=== PATIENT | male | born 2000 | race Caucasian/White ===

== ENCOUNTER 2020-11-08 13:44 | Emergency (ER) | payer OTHER, SELFPAY ==
--- NOTE | 2020-11-08 13:49 | ED.URI ---
HPI - URI/Sore Throat General Chief Complaint: Upper Respiratory Infection Stated Complaint: SORE THROAT/FEVER/BODY ACHES/NAUSEA Time Seen by Provider: 11/08/20 13:49 Source: patient and RN notes reviewed History of Present Illness HPI Narrative: Patient is a 20-year-old male who presents the urgent care with complaints of sore throat fever, body aches and nausea. Patient states that it started at 2 AM this morning and he took ibuprofen for his at 102.0 fever. Patient states that he is been having a slight dizziness throughout the day and has increased his water intake as well as Gatorade. Patient denies any abdominal pain, headache, vomiting. Denies of any known exposure to Covid or strep. No other acute complaints. No acute distress noted. Patient aware of the plan of care. Some parts of this dictation were generated by voice recognition software and may contain typographical and/or grammatical inaccuracies. Related Data Allergies Allergy/AdvReac Type Severity Reaction Status Date / Time No Known Allergies Allergy Unknown Verified 11/08/20 14:00 Review of Systems Review of Systems: Narrative: CONSTITUTIONAL: Reports a fever EYES: Denies visual changes, redness, or discharge. ENT: Denies rhinorrhea, congestion, otalgia. Reports of sore throat CARDIOVASCULAR: Denies chest pain, palpitations, or edema. RESPIRATORY: Denies cough or dyspnea. GASTROINTESTINAL: Reports of nausea without vomiting, diarrhea or abdominal pain GENITOURINARY: Denies dysuria or hematuria. SKIN: Denies rash or itching. MUSCULOSKELETAL: Denies back pain, joint pain. Reports of body aches NEUROLOGIC: Denies headache, numbness, or weakness. All other systems reviewed are negative, except as documented in HPI. PMFSH Family History Family History Other Family history of attention deficit hyperactivity disorder (ADHD) Social History Social History Smoking status: Never smoker Alcohol intake: never Comments At the time of my signature, I reviewed and agree with the nursing past medical, surgical, social, and family history. There is no relevant family history pertinent to the patient complaint. Exam Narrative: Exam Narrative: GENERAL: This is a well-nourished, well-developed patient, in no apparent distress. HEAD: normocephalic, atraumatic. EYES: PERRL. Sclera clear/white. Vision is grossly intact. EARS: External ears normal, auditory canals clear and without drainage, TMs normal without perforation. Hearing grossly intact. NOSE: External nose normal with no obvious nasal discharge, nares without redness, no rhinorrhea. THROAT: Mucous membranes moist, moderate erythema noted to posterior oropharynx with mild bilateral tonsillar edema/erythema with bilateral exudate NECK: Neck supple, non-tender without lymphadenopathy, masses or thyromegaly. CARDIOVASCULAR: Regular rate and rhythm without murmurs, gallops, or rubs. RESPIRATORY: Clear to auscultation. Breath sounds equal bilaterally. No wheezes, rales, or rhonchi. SKIN: warm, intact with no suspicious lesions or rash, good texture and turgor. NEURO: awake, alert, and oriented to person, place and time. There were no obvious focal neurologic abnormalities. EXTREMITIES: No clubbing, cyanosis, or edema. Course Vital Signs Vital signs: Vital Signs Temperature 100.9 F H 11/08/20 13:58 Pulse Rate 105 H 11/08/20 13:58 Respiratory Rate 20 11/08/20 13:58 Blood Pressure 151/72 H 11/08/20 13:58 Pulse Oximetry 100 11/08/20 13:58 Temperature 100.9 F H 11/08/20 13:58 Pulse Rate 105 H 11/08/20 13:58 Respiratory Rate 20 11/08/20 13:58 Blood Pressure 151/72 H 11/08/20 13:58 Pulse Oximetry 100 11/08/20 13:58 Reviewed?patient is informed that they may have pre-hypertension or hypertension based on a blood pressure reading in the department. I recommend the patient call th
[2020-11-08 13:58] VITALS: BP 151/72; PULSE 105; RESP 20; TEMP 38.3; O2SAT 100
[2020-11-09 21:52] LABS: SARS-CoV-2 RNA PCR Negative
== END 2020-11-08 14:18 | disposition home or self-care (01) ==
PROVIDERS: Emergency Provider Nurse Practitioner Family; PCP Student in an Organized Health Care Education/Training Program
DX: J02.9 Acute pharyngitis, unspecified (principal); Z20.822 Contact with and (suspected) exposure to COVID-19; E10.9 Type 1 diabetes mellitus without complications
CPT/HCPCS: 87081; 87880; 99213; C9803; G0463; U0003; U0005

== ENCOUNTER 2022-08-02 17:39 | Emergency (ER) | payer OTHER, SELFPAY ==
--- NOTE | ~2022-08-02 | XR_ITS ---
Left Hand Technique: PA, oblique, and lateral views were obtained. Clinical History: Injury Findings: No acute fracture or dislocation is seen. Osseous alignment is anatomic. Joint spaces are p reserved. Soft tissues are unremarkable. Impression: Unremarkable left hand. 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
[2022-08-02 18:14] VITALS: BP 158/77; PULSE 73; RESP 16; TEMP 36.3; O2SAT 100
[2022-08-02 22:04] VITALS: BP 143/73; PULSE 71; RESP 16; O2SAT 100
--- NOTE | 2022-08-02 22:24 | ED.WOUNDLAC ---
HPI - Wound/Laceration General Chief Complaint: Wound/Laceration Stated Complaint: left hand laceration Time Seen by Provider: 08/02/22 22:07 Source: patient and RN notes reviewed Mode of arrival: ambulatory Limitations: no limitations History of Present Illness HPI narrative: This is a 22 year old male right hand dominant who presents for evaluation of left hand laceration. He was at work when he accidentally hit his hand on metal shelf causing small laceration to top of left hand. He has mild pain. REports tetanus is up to date. Related Data Allergies Allergy/AdvReac Type Severity Reaction Status Date / Time No Known Allergies Allergy Unknown Verified 08/02/22 17:40 Review of Systems Review of Systems: All systems reviewed & are unremarkable except as noted in HPI and below PMFSH Past Medical History Medical History Celiac disease Type 1 diabetes mellitus with hyperglycemia Surgical History Surgical History No pertinent past surgical history Family History Family History Other Family history of attention deficit hyperactivity disorder (ADHD) Social History Social History Smoking status: Never smoker Alcohol intake: never Substance use: never Exam Const: General: no acute distress and alert Nutritional Appearance: well nourished Orientation/consciousness: patient oriented x3 HENMT: Head: normal to inspection Eyes: EOM: EOMs intact bilaterally Resp: Effort & Inspection: normal respiratory effort Skin: Other: left hand with small 1 cm laceration dorsum 4th knuckle Neuro: General: patient oriented x3, moves all extremities and CN's II-XI intact bilaterally Extrem: Other: FROM with Psych: Mental Status: mental status grossly normal Affect: normal affect Attitude: cooperative Course Reevaluation(s) Reevaluation #1: I discussed with patient preliminary xray is negative and radiology will review for discrepancy in morning. Date: 08/03/22 Time: 00:08 Vital Signs Vital signs: Vital Signs Temperature 97.4 F L 08/02/22 18:14 Pulse Rate 73 08/02/22 18:14 Respiratory Rate 16 08/02/22 18:14 Blood Pressure 158/77 H 08/02/22 18:14 Pulse Oximetry 100 08/02/22 18:14 Oxygen Delivery Room Air 08/02/22 18:14 Temperature 97.4 F L 08/02/22 18:14 Pulse Rate 96 08/03/22 00:15 Respiratory Rate 16 08/03/22 00:15 Blood Pressure 152/98 H 08/03/22 00:15 Pulse Oximetry 98 08/03/22 00:15 Oxygen Delivery Room Air 08/02/22 18:14 Procedures Laceration Laceration 1: Date: 08/02/22 Time: 23:45 Site: hand Side (If applicable): left Size (cm): 1 Description: linear and clean Depth: simple, single layer Local Anesthetic: lidocaine 1% Amount of anesthesia used (mL): 2 Pre-repair: wound explored ====== Skin Level ====== Skin layer closed with: prolene Size (cm): 4-0 Number of sutures: 2 Technique: simple, interrupted ====== Subcutaneous Layer ====== ====== Muscle Layer ====== ====== Tendon Layer ====== MDM - Wound/Laceration Imaging Data Attestation: I personally reviewed and interpreted this imaging study as follows: My impression: left hand xray- no fracture Discharge Plan Discharge Clinical Impression: Laceration of hand, left Patient Disposition: Home, Self-Care Condition: Stable Instructions: Antibiotic Form, Care For Your Stitches (ED), Laceration (ED) Additional Instructions: Keep your wound clean and dry. Have stitches removed in 10 days. Prescriptions: No Action (DME) Omnipod 5 G6 Intro Kit (Gen 5) Cartridge See Rx Instructions .Route Qty: 1 0RF Rx Instructions:
[2022-08-02] MEDS: LIDOCAINE HCL 1% LOCAL INJ 20 ML VIAL 5 ML INFILTRATE (23:25)
[2022-08-03 00:15] VITALS: BP 152/98; PULSE 96; RESP 16; O2SAT 98
== END 2022-08-03 00:15 | disposition home or self-care (01) ==
PROVIDERS: Emergency Provider General Practice; PCP Student in an Organized Health Care Education/Training Program
DX: S61.412A Laceration without foreign body of left hand, initial encounter (principal); W22.09XA Striking against other stationary object, initial encounter; E10.9 Type 1 diabetes mellitus without complications; K90.0 Celiac disease; Z79.4 Long term (current) use of insulin
CPT/HCPCS: 12001; 73130; 99283

== ENCOUNTER 2024-09-16 07:58 | Emergency (ER) | payer OTHER, SELFPAY ==
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
[2024-09-16 08:16] VITALS: BP 123/88; PULSE 87; RESP 18; TEMP 37.1; O2SAT 100
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
== END 2024-09-16 09:19 | disposition home or self-care (01) ==
PROVIDERS: PCP Student in an Organized Health Care Education/Training Program
DX: S62.326A Displaced fracture of shaft of fifth metacarpal bone, right hand, initial encounter for closed fracture (principal); W50.0XXA Accidental hit or strike by another person, initial encounter; E10.9 Type 1 diabetes mellitus without complications; Z96.41 Presence of insulin pump (external) (internal)
CPT/HCPCS: 29126; 73130; 99214; A4565; G0463

== ENCOUNTER 2024-09-30 13:18 | Outpatient (CLI) | payer OTHER, SELFPAY ==
--- NOTE | ~2024-09-30 | XR_ITS ---
XR hand RT min 3V Ordering provider: Starla Mccullough MD History: . take out of splint, RIGHT HAND FOLLOW-UP . Comparison: None. FINDINGS: BONES: Fracture at the base of the of the fifth metacarpal bone. JOINT SPACES: Normal. SOFT TISSUES: Normal. IMPRESSION: Fracture at the base of the fifth metacarpal bone. No displacement of bones seen. Reviewed, dictated and finalized at location A. IMPRESSION: Fracture at the base of the fifth metacarpal bone. No displacement of bones see n.
--- OUTSIDE RECORDS SUMMARY | 2024-09-30 15:07 | XMS_ITS | Clinical Summary ---
Author Organization [facility] Address [address] [place] [address] Care Team Providers Care Travel Sales Consultant Name Role Phone Helio Boudreaux MD Unavailable Norman Flores INTELLIGENCE ENGINEER-RICE FARMER Unavailable [phone] Tatum Lew INTELLIGENCE ENGINEER-RICE FARMER Unavailable Unavail able Norman Flores INTELLIGENCE ENGINEER-RICE FARMER Unavailable Moses Curry MD Primary Care Provider [phone] Source Comments [facility],non-owned Affiliates and Associated Physician Practices is amultiple site organization consisting of ambulatory clinics and hospital sitesin [place], [place], [place] and [place]. This disclosure is being madepursuant to the Care Everywhere program and may not contain all information available regarding this patient. Last updated 18.[facility] Allergies No known active allergies Medications * Be aware that medications may not be up to date on this document. Alwaysverify current medications with the patient. acetone,urine, (KETOSTIX) strip Use as needed (use when blood sugar is greater than 250 or when ill. ). 100 Strip 11 4 Active ACCU-CHEK FASTCLIX LANCETSIndicatio ns:Diabetes mellitus type 1 (HCC) Use 5-9 daily to test blood sugar 204 Each 5 5 Active insulin lispro (HUMALOG) vial Inject 1 unit for every 5-8 grams carbohydrate with meals and snacks or as directed. 1 Box 5 5 Active insulin pen needle (B-D UF III MINI PEN NEEDLES) 31G X 5 MM needle 4-6 Each by Injection route once daily 200 Each 11 5 Active blood glucose (ACCU-CHEK SMARTVIEW) test stripIndications :Diabetes mellitus type I, controlled ([facility]) Use 1 Strip Each to test blood sugars 5-9 times daily 200 Strip 11 5 Active Blood Glucose Monitoring Suppl (ACCU-CHEK JONY SMARTVIEW) W/DEVICE KIT kitIndications:D iabetes mellitus type I, controlled ([facility]) Use to test blood sugar. 2 Kit 1 5 Active Blood Glucose Monitoring Suppl (IntelipostUCH VERIO) W/DEVICE KIT Use 1 Kit as directed for blood glucose monitoring. 1 Kit 1 5 Active ondansetron (ZOFRAN) 4 MG tablet Take 1 Tab by mouth every 6 hours as needed for Nausea/Vomiting 6 Tab 0 6 Active Blood Glucose Monitoring Suppl (ONETOUCH VERIO) W/DEVICE KITIndications:D iabetes mellitus type I, controlled ([facility]) Use 1 Kit as directed for blood glucose monitoring. 1 Kit 1 6 Active glucagon ([facility]ERG[facility]Y) injectionIndicat ions:Controlled type 1 diabetes mellitus without complication, with long-term current use of insulin ([facility]) Inject 1 mg into muscle as directed for severe low blood sugar reaction. 2 Kit 2 6 Active insulin lispro (HUMALOG) 100 UNIT/ML vialIndications: Controlled type 1 diabetes mellitus without complication, with long-term current use of insulin ([facility]) 1 u per 5 g carb with meals/snacks (80 units per day) 2 Box 5 6 Active insulin glargine (LANTUS SOLOSTAR) penIndications:U ncontrolled type 1 diabetes mellitus without complication Inject 28 units at bedtime nightly or as directed. 2 Box 7 Active blood glucose (ONETOUCH VERIO) test stripIndications :Controlled type 1 diabetes mellitus without complication, with long-term current use of insulin ([facility]) Use for blood glucose monitoring 5-9 times/day. 600 Strip 7 Active Insulin Pen Needle (BD PEN NEEDLE JONY U/F) 32G X 4 MM MISC Use 1 Each as directed Use for injections 4-6 times daily. 600 Each 7 Active Active Problems Problem Noted Date Diagnosed Date Microalbuminuria 05/01/2016 Assessment & Plan (01/16/2017 3:39 PM CDT): 1. Referral to Nephrology Assessment & Plan (09/06/2016 5:01 PM CDT): 1. 24 hour urine collection for creatinine and microalbumin. 2. Referral to Pediatric Nephrology Assessment & Plan (05/01/2016 12:26 PM INSTRUCTOR DRAMATIC ARTS): 1. Obtain 24 hour urine collection for creatinine and microalbuminuria 2. Referral to Pediatric Nephrology pending results of 24 hour urine results. Other closed fractures of distal end of radius ( alone) 07/04/2013 Diabetes mellitus type 1 11/19/2009 Overview (01/16/2017): Dx: 08/07/07 Mar 31, 2014 - total IgA 76 mg/dL; tissue transglutaminase antibody (IgA): 1 u/mL (< 4) DKA hospitalization (05/30/13) Complications: microalbuminuria (has not followed up with nephrology) Last RD: August,. Assessment & Plan (01/16/2017 3:42 PM CDT): Lantus 28 units at 6 p.m. Novolog/humalo unit per 5 g carb at breakfast; 1 u per 7 g carb at lunch;1 u per 6 g carb at supper and1 u per 5 g carb with snacks [give insulin injections prior to meals/snacks] Mealtime correction: 1 unit Novolog/Humalog for every 30 mg/dL over 150 mg/dL. Wilian Yeung's home target blood glucose range: 70-150 mg/dL Target blood glucose levels for children with type I diabetes mellitus Under age 4 yr: 100-200 mg/dL Age 4-7 yr: 80-180 mg/dL Over age 7 yr: 80-150 mg/dL Insulin injections given by: self Insulin injection sites: arm(s) Avoid giving insulin injections in the n/a - lipohypertrophied areas Consistent carbohydrate counting meal planning (gluten free no) Avoid/minimize between meal snacking without taking insulin. Per the [employer] [place] [employer] practice guidelines [Diabetes Care 2015 38 (suppl 1): S1-S94], people with type 1 diabetes mellitus on multiple-dose insulin or insulin pump therapy should perform SMBG prior to meals and snacks, occasionally post-prandial, at bedtime, prior to exercise, when they suspect low blood glucose, after treating low blood glucose until they are normoglycemic, and prior to critical tasks such as driving. Record home blood glucose records in a logbook and bring this logbook to each office visit. Wear medic alert identification at all times. Schedule appointment for annual eye exam: no; Last eye exam: August 2016 Follow-up by telephone (office number: [phone], option #4 or fax number: [phone]) as needed before transfer of care to local adult division leader Assessment & Plan (09/06/2016 5:00 PM CDT): Lantus 28 units at 6 p.m. Novolog/humalo unit per 5 g carb at breakfast; 1 u per 7 g carb at lunch;1 u per 6 g carb at supper and1 u per 5 g carb with snacks [give insulin injections prior to meals/snacks] Mealtime correction: 1 unit Novolog/Humalog for every 30 mg/dL over 150 mg/dL. Wilian Yeung's home target blood glucose range: 70-150 mg/dL Target blood glucose levels for children with type I diabetes mellitus Under age 4 yr: 100-200 mg/dL Age 4-7 yr: 80-180 mg/dL Over age 7 yr: 80-150 mg/dL Insulin injections given by: self Insulin injection sites: arm(s) Avoid giving insulin injections in the n/a - lipohypertrophied areas Consistent carbohydrate counting meal planning (gluten free no) Avoid/minimize between meal snacking without taking insulin. Per the [employer] practice guidelines [Diabetes Care 2015 38 (suppl 1): S1-S94], people with type 1 diabetes mellitus on multiple-dose insulin or insulin pump therapy should perform SMBG prior to meals and snacks, occasionally post-prandial, at bedtime, prior to exercise, when they suspect low blood glucose, after treating low blood glucose until they are normoglycemic, and prior to critical tasks such as driving. Record home blood glucose records in a logbook and bring this logbook to each office visit. Obtain and wear medic alert identification at all times. Schedule appointment for annual eye exam: no; Last eye exam: August 2016 Influenza immunization: not done (at this office visit) Follow-up by telephone (office number: [phone], option #4 or fax number: [phone]) in 2 weeks to review Wilian's interval home blood glucose records and make any additional insulin dose adjustments. Return appointment in 3 months Assessment & Plan (05/01/2016 12:24 PM INSTRUCTOR DRAMATIC ARTS): Lantus 28 units at 6 p.m. Novolog/humalo unit per 5 g carb at meals/snacks [give insulin injections prior to meals/snacks] Mealtime correction: 1 unit Novolog/Humalog for every 30 mg/dL over 13 0 mg/dL. Wilian Yeung's home target blood glucose range: 70-150 mg/dL Target blood glucose levels for children with type I diabetes mellitus Under age 4 yr: 100-200 mg/dL Age 4-7 yr: 80-180 mg/dL Over age 7 yr: 80-150 mg/dL Insulin injections given by: self Insulin injection sites: arm(s) Avoid giving insulin injections in the n/a - lipohypertrophied areas Consistent carbohydrate counting meal planning (gluten free no) Avoid/minimize between meal snacking without taking insulin. Per the [employer] practice guidelines [Diabetes Care 2015 38 (suppl 1): S1-S94], people with type 1 diabetes mellitus on multiple-dose insulin or insulin pump therapy should perform SMBG prior to meals and snacks, occasionally post-prandial, at bedtime, prior to exercise, when they suspect low blood glucose, after treating low blood glucose until they are normoglycemic, and prior to critical tasks such as driving. Record home blood glucose records in a logbook and bring this logbook to each office visit. Obtain and wear medic alert identification at all times. Schedule appointment for annual eye exam: no; Last eye exam: August 2015 Influenza immunization: not done (at this office visit) Follow-up by telephone (office number: [phone], option #4 or fax number: [phone]) in 2 weeks to review Wilian's interval home blood glucose records and make any additional insulin dose adjustments. Return appointment in three months Assessment & Plan (12/22/2015 10:59 AM CDT): Lantus 28 units at 6 p.m. Novolog/humalo unit per 5 g carb at meals/snacks [give insulin injections prior to meals/snacks] Mealtime correction: 1 unit Novolog/Humalog for every 30 mg/dL over 150 mg/dL. Wilian Sommer MarsGamal's home target blood glucose range: 70-150 mg/dL Target blood glucose levels for children with type I diabetes mellitus Under age 4 yr: 100-200 mg/dL Age 4-7 yr: 80-180 mg/dL Over age 7 yr: 80-150 mg/dL Insulin injections given by: self Insulin injection sites: arm(s) Avoid giving insulin injections in the n/a - lipohypertrophied areas Consistent carbohydrate counting meal planning (gluten free no) Avoid/minimize between meal snacking without taking insulin. Per the [employer] practice guidelines [Diabetes Care 2015 38 (suppl 1): S1-S94], people with type 1 diabetes mellitus on multiple-dose insulin or insulin pump therapy should perform SMBG prior to meals and snacks, occasionally post-prandial, at bedtime, prior to exercise, when they suspect low blood glucose, after treating low blood glucose until they are normoglycemic, and prior to critical tasks such as driving. Record home blood glucose records in a logbook and bring this logbook to each office visit. Obtain and wear medic alert identification at all times. Schedule appointment for annual eye exam: no; Last eye exam: August 2015 Influenza immunization: not done (at this office visit) Follow-up by telephone (office number: [phone], option #4 or fax number: [phone]) in 2 weeks to review Wilian's interval home blood glucose records and make any additional insulin dose adjustments. Repeat urine microalbumin/creatinine measurement on first morning voided urine specimen before next appointment in 3 months Assessment & Plan (08/25/2015 4:23 PM CDT): Lantus 28 units at 9 p.m. Novolog/humalo unit per 5 g carb at meals/snacks [give insulin injections prior to meals/snacks] Mealtime correction: 1 unit Novolog/Humalog for every 30 mg/dL over 150 mg/dL. Blood glucose target range: 70-150 mg/dL Insulin injections given by: self Insulin injection sites: arm(s) Avoid giving insulin injections in the n/a - lipohypertrophied areas Consistent carbohydrate counting meal planning (gluten free no) Avoid/minimize between meal snacking without taking insulin. Per the [employer] practice guidelines [Diabetes Care 2015 38 (suppl 1): S1-S94], people with type 1 diabetes mellitus on multiple-dose insulin or insulin pump therapy should perform SMBG prior to meals and snacks, occasionally post-prandial, at bedtime, prior to exercise, when they suspect low blood glucose, after treating low blood glucose until they are normoglycemic, and prior to critical tasks such as driving. Record home blood glucose records in a logbook and bring this logbook to each office visit. Obtain and wear medic alert identification at all times. Schedule appointment for annual eye exam: no; Last eye exam: July 2015 Follow-up by telephone (office number: [phone], option #4 or fax number: [phone]) in 2 weeks to review Wilian's interval home blood glucose records and make any additional insulin dose adjustments. Return appointment in 3 months Assessment & Plan (05/11/2015 3:26 PM INSTRUCTOR DRAMATIC ARTS): Hemoglobin A1c (Goal - 9 %) at Wilian Yeung's next office appointment. Lantus 30 units at 10 p.m. Novolog/humalo unit per 8 g carb at breakfast; 1 u per 7 g carb at lunch;1 u per 5 g carb at supper and 1 u per 5 g carb with snacks [give insulin injections prior to meals/snacks] Mealtime correction: 1 unit Novolog/Humalog for every 30 mg/dL over 150 mg/dL. Blood glucose target range: 70-150 mg/dL Insulin injections given by: self Insulin injection sites: arm(s) Avoid giving insulin injections in the n/a - lipohypertrophied areas Consistent carbohydrate counting meal planning (gluten free no) Avoid/minimize between meal snacking without taking insulin. Per the [employer] practice guidelines [Diabetes Care 2015 38 (suppl 1): S1-S94], people with type 1 diabetes mellitus on multiple-dose insulin or insulin pump therapy should perform SMBG prior to meals and snacks, occasionally post-prandial, at bedtime, prior to exercise, when they suspect low blood glucose, after treating low blood glucose until they are normoglycemic, and prior to critical tasks such as driving. Record home blood glucose records in a logbook and bring this logbook to each office visit. Obtain and wear medic alert identification at all times. Schedule appointment for annual eye exam: yes; Last eye exam: June 2014 Influenza immunization: not done (at this office visit) Follow-up by telephone (office number: [phone], option #4 or fax number: [phone]) in 2 weeks to review Wilian's interval home blood glucose records and make any additional insulin dose adjustments. Return appointment in 2 months Assessment & Plan (12/15/2014 3:14 PM CDT): Lantus 30 units at 10 p.m. Novolog/humalo unit per 8 g carb at breakfast; 1 u per 7 g carb at lunch;1 u per 5 g carb at supper and1 u per 5 g carb with snacks [give insulin injections prior to meals/snacks] Mealtime correction: 1 unit Novolog/Humalog for every 30 mg/dL over 150 mg/dL. Blood glucose target range: 70-150 mg/dL Insulin injections given by: self Insulin injection sites: arm(s), lower leg(s) Avoid giving insulin injections in the n/a - lipohypertrophied areas Consistent carbohydrate counting meal planning (gluten free no) Avoid/minimize between meal snacking without taking insulin. Per the [employer] practice guidelines [Diabetes Care 2015 38 (suppl 1): S1-S94], people with type 1 diabetes mellitus on multiple-dose insulin or insulin pump therapy should perform SMBG prior to meals and snacks, occasionally post-prandial, at bedtime, prior to exercise, when they suspect low blood glucose, after treating low blood glucose until they are normoglycemic, and prior to critical tasks such as driving. Record home blood glucose records in a logbook and bring this logbook to each office visit. Obtain and wear medic alert identification at all times. Schedule appointment for annual eye exam: no; Last eye exam: April 2014 Influenza immunization: not done (at this office visit) Follow-up by telephone (office number: [phone], option #4 or fax number: [phone]) as needed to review [facility]'s interval home blood glucose records and make any additional insulin dose adjustments. Return appointment in 3 months Assessment & Plan (08/26/2014 2:09 PM CDT): Lantus 30 units at 8 p.m. Novolog/humalo unit per 8 g carb at breakfast; 1 u per 7 g carb at lunch;1 u per 5 g carb at supper and1 u per 5 g carb with snacks [give insulin injections prior to meals/snacks] Mealtime correction: 1 unit Novolog/Humalog for every 30 mg/dL over 150 mg/dL. Blood glucose target range: 70-150 mg/dL Insulin injections given by: self Insulin injection sites: arm(s) Avoid giving insulin injections in the n/a - lipohypertrophied areas Consistent carbohydrate counting meal planning (gluten free no) Avoid/minimize between meal snacking without taking insulin. Self blood glucose monitoring before meals, HS, and prn (record in logbook). Wear medic alert identification at all times. Schedule appointment for annual eye exam: yes; Last eye exam: Aug 2013 Follow-up by telephone (office number: [phone], option #4 or fax number: [phone]) in 2 weeks to review [facility]'s interval home blood glucose records and make any additional insulin dose adjustments. Return appointment in 3 months Assessment & Plan (06/20/2014 5:07 PM INSTRUCTOR DRAMATIC ARTS): Lantus 30 units at 8 p.m. Novolog/humalo unit per 8 g carb at breakfast; 1 u per 7 g carb at lunch;1 u per 5 g carb at supper and1 u per 5 g carb with snacks [give insulin injections prior to meals/snacks] Mealtime correction: 1 unit Novolog/Humalog for every 30 mg/dL over 150 mg/dL. Blood glucose target range: 70-150 mg/dL Insulin injections given by: self Insulin injection sites: arm(s) Avoid giving insulin injections in the n/a - lipohypertrophied areas Consistent carbohydrate counting meal planning (gluten free no) Avoid/minimize between meal snacking without taking insulin. Self blood glucose monitoring before meals, HS, and prn (record in logbook). Obtain and wear medic alert identification at all times. Schedule appointment for annual eye exam: no; Last eye exam: October 2013 Influenza immunization: already done (at this office visit) Follow-up by telephone (office number: [phone], option #4 or fax number: [phone]) in 2 weeks to review [facility]'s interval home blood glucose records and make any additional insulin dose adjustments. Return appointment in 2 months Assessment & Plan (04/10/2014 5:39 PM INSTRUCTOR DRAMATIC ARTS): Lantus 30 units at 8 p.m. Novolog/humalo unit per 7 g carb at breakfast; 1 u per 8 g carb at lunch;1 u per 5 g carb at supper and1 u per 5 g carb with snacks [give insulin injections prior to meals/snacks] Mealtime correction: 1 unit Novolog/Humalog for every 50 mg/dL over 150 mg/dL. Blood glucose target range: 70-150 mg/dL Insulin injections given by: self Insulin injection sites: arm(s) Avoid giving insulin injections in the n/a - lipohypertrophied areas Consistent carbohydrate counting meal planning (gluten free no) Avoid/minimize between meal snacking without taking insulin. Self blood glucose monitoring before meals, HS, and prn (record in logbook). Obtain and wear medic alert identification at all times. Schedule appointment for annual eye exam: no; Last eye exam: August 2013 Influenza immunization: not done (at this office visit) Follow-up by telephone (office number: [phone], option #4 or fax number: [phone]) in 2 weeks to review [facility]'s interval home blood glucose records and make any additional insulin dose adjustments. Return appointment in 2 months Assessment & Plan (01/21/2014 9:32 AM CDT): Wilian Yeung's hemoglobin A1c (~ avg blood glucose of the last 3 months) level today 11.4 % Hemoglobin A1c (Goal - 10 %) at Wilian Yeung's next office appointment. Lantus 20 units at 6 p.m. Novolog/humalo unit per 7 g carb at meals/snacks [give insulin injections prior to meals/snacks] Mealtime correction: 1 unit Novolog/Humalog for every 50 mg/dL over 150 mg/dL. Blood glucose target range: 70-150 mg/dL Insulin injections given by: self Insulin injection sites: arm(s) Avoid giving insulin injections in the n/a - lipohypertrophied areas Consistent carbohydrate counting meal planning (gluten free no) Avoid/minimize between meal snacking without taking insulin. Self blood glucose monitoring before meals, HS, and prn (record in logbook). Obtain and wear medic alert identification at all times. Schedule appointment for annual eye exam: no; Last eye exam: August 2013 Influenza immunization: not done (at this office visit) Follow-up by telephone (office number: [phone], option #4 or fax number: [phone]) in 2 weeks to review Wilian's interval home blood glucose records and make any additional insulin dose adjustments. Use control solution for meter before starting a new box of test strips. Obtain hemoglobin A1c, TSH, total IgA, tissue transglutaminase (IgA) antibody prior to next office appointment in 2 months (prescription given). Assessment & Plan (10/22/2013 9:57 AM CDT): Your hemoglobin A1c today 11.7 % (Goal - 10.0 %) Lantus 31 units at 6 p.m. Novolog/humalo unit per 6 g carb at breakfast; 1 u per 7 g carb at lunch; 1 u per 5 g carb at supper and 1 u per 8 g carb with bedtime snacks [give insulin injections prior to meals/snacks] Mealtime correction: 1 unit Novolog/Humalog for every 50 mg/dL over 150 mg/dL Blood glucose target range: 70-150 mg/dL Insulin injections given by: self Consistent carbohydrate counting meal planning (gluten free no) Self blood glucose monitoring before meals, HS, and prn (record in logbook). Obtain and wear medic alert identification at all times. Schedule appointment for annual eye exam: no; Last eye exam: September, - no diabetic retinopathy (per parental report). Follow-up by telephone (office number: [phone], option #4 or fax number: [phone]) in 2 weeks to review [facility]'s interval home blood glucose records and make any additional insulin dose adjustments. Return appointment in 2 months Assessment & Plan (09/10/2013 8:58 PM CDT): Your hemoglobin A1c today 9.5 % (Goal - < 9.0 %) Lantus 31 units at 6 p.m. Novolog/humalo unit per 6 g carb at breakfast; 1 u per 7 g carb at lunch; 1 u per 5 g carb at supper and 1 u per 8 g carb with bedtime snacks [give insulin injections prior to meals/snacks] Mealtime correction: 1 unit Novolog/Humalog for every 50 mg/dL over 150 mg/dL Blood glucose target range: 70-150 mg/dL Insulin injections given by: self 2 Consistent carbohydrate counting meal planning (gluten free no) Self blood glucose monitoring before meals, HS, and prn (record in logbook). Obtain and wear medic alert identification at all times. Schedule appointment for annual eye exam: yes; Last eye exam: June 2012 Influenza immunization: already (at this office visit) Follow-up by telephone (office number: [phone], option #4 or fax number: [phone]) in 2 weeks to review [facility]'s interval home blood glucose records and make any additional insulin dose adjustments. Return appointment in 2 months Assessment & Plan (06/06/2013 10:04 AM INSTRUCTOR DRAMATIC ARTS): Poorly controlled; hemoglobin A1c 13.1% (May 30, 2013 - [place], [place]) 1. Lantus 30 units at 6 pm 2. Novolog/humalo unit per 6 g carb at breakfast; 1 u per 7 g carb at lunch; 1 unit per 5 g carb at dinner [give insulin injections prior to meals/snacks] 3. Mealtime correction: 1 unit Novolog/Humalog for every 50 mg/dL over 150 mg/dL 4. Rotate insulin injection sites; avoid giving injections in the n/a - lipohypertrophied areas 5. Consistent carbohydrate counting meal planning 6. Self blood glucose monitoring before meals, HS, and prn (record in logbook). 7. Obtain and wear medic alert identification at all times. 8. Influenza immunization: previously done (at this office visit) 9. Follow-up by telephone (office number: [phone], option #4 or fax number: [phone]) in 1 day to review [facility]'s interval home blood glucose records and make any additional insulin dose adjustments. 10. Return appointment in 1-2 months Assessment & Plan (03/11/2013 7:39 PM CDT): Lantus 28 units at bedtime Novolog/humalo units at breakfast; 15 units at lunch; 21 unit at dinner; 5 units with snacks Consistent carbohydrate counting meal planning Self blood glucose monitoring before meals, HS, and prn (record in logbook). Obtain and wear medic alert identification at all times. Follow-up by telephone in 1-2 weeks to review [place]'s interval blood glucose records and make any additional insulin dose adjustments. Return appointment in two months Return appointment at [facility] in [place], [place] - telephone number Assessment & Plan (01/02/2013 10:22 AM CDT): Lantus 28 units at bedtime Novolog/humalo units at breakfast; 15 units at lunch; 20 unit at dinner; 5 units with snacks Consistent carbohydrate counting meal planning Self blood glucose monitoring before meals, HS, and prn (record in logbook). Obtain and wear medic alert identification at all times. Follow-up by telephone in 1-2 weeks to review [place]'s interval blood glucose records and make any additional insulin dose adjustments. Return appointment in two months Return appointment at [facility] in [place], [place] - telephone number [phone] Immunizations Immunization Administration Dates Next Due INFLUENZA VACCINE 06/08/2010 Social History Tobacco Use Types Packs/Day Years Used Date Smoking Tobacco: Never Smokeless Tobacco: Never Alcohol Use Standard Drinks/Week Comments No 0 (1 standard drink = 0.6 oz pur e alcohol) Sex and Gender Information Value Date Recorded Sex Assigned at Not on file Legal Sex Male 6:35 AM INSTRUCTOR DRAMATIC ARTS Gender Identity Not on file Sexual Orientation Not on file Last Filed Vital Signs Vital Sign Reading Time Taken Comments Blood Pressure 118/72 12/19/2016 1:31 PM CDT Pulse 74 12/19/2016 1:31 PM CDT Temperature 37.1 C (98.8 F) 06/22/2013 6:42 PM INSTRUCTOR DRAMATIC ARTS Respiratory Rate 16 12/19/2016 1:31 PM CDT Oxygen Saturation 99% 05/31/2013 8:05 AM INSTRUCTOR DRAMATIC ARTS Inhaled Oxygen Concentration - - Weight 72.4 kg (159 lb 9.8 oz) 12/19/2016 1:31 P M CDT Height 195.6 cm (6' 5 ) 12/19/2016 1:31 PM CDT Body Mass Index 18.93 12/19/2016 1:31 PM CDT Plan of Treatment Health Maintenance Due Date Last Done Comments HIV SCREENING 2013 HPV VACCINE (1 - Male 3-dose series) 2013 HEPATITIS C SCREENING 02/15/2016 DIABETES-FOOT EXAM WITH MONOFILAMENT 02/20/2016 DIABETES-SERUM CREATININE 02/20/20162012, 05/31/2013, 05/30/2013, Additional history exists DTAP/TDAP/TD VACCINES (1 - Tdap) 2017 HEPATITIS B VACCINE (1 of 3 - 19+ 3-dose series) 2017 DIABETES-HGB A1C 06/16/2017 12/14/2016, , 04/20/2016, Additional history exists COVID-19 VACCINE ( - season) 2024 DEPRESSION SCREENING 06/05/2024 DIABETES - URINE PROTEIN SCREENING 06/05/2024 04/20/2016, 12/15/2015, 12/09/2014, Additional history exists INFLUENZA VACCINE (Season Ended) 2025 06/08/2010 ZOSTER VACCINE (1 of 2) 02/20/2048 HIB VACCINE Aged Out No longer eligi ble based on patient's age to complete this topic MENINGOCOCCAL (Group B) VACCINE SHARED DECISION-MAKING Aged Out No longer eligible based on patient's age to complete this topic MENINGOCOCCAL GROUPS A/C/Y/W VACCINE Aged Out No longer eligible based on patient's age to complete this topic PNEUMOCOCCAL VACCINE Aged Out No long er eligible based on patient's age to complete this topic Procedures Procedure Name Priority Date/Time Associated Diagnosis Comments HEMOGLOBIN A1C Routine 12/14/2016 1:39 PM CDT Uncontrolled type 1 diabetes mellitus without complication MICROALB/CREAT RATIO URINE RANDOM PANEL 04/20/2016 10:23 AM INSTRUCTOR DRAMATIC ARTS BASIC METABOLIC PANEL (CALCIUM TOTAL) Routine 05/31/2013 1:02 AM INSTRUCTOR DRAMATIC ARTS from Last 3 Months or Most Recently Relevant to Health Maintenance Results * (ABNORMAL) HEMOGLOBIN A1C (12/14/2016 1:39 PM CDT) Hemoglobin A1c 10.7(H) <5.7 % of total Hgb [facility] Comment: For someone without known diabetes, a hemoglobin A1c value of 6.5% or greater indicates that they may have diabetes and this should be confirmed with a follow-up test. For someone with known diabetes, a value <7% indicates that their diabetes is well controlled and a value greater than or equal to 7% indicates suboptimal control. A1c targets should be individualized based on duration of diabetes, age, comorbid conditions, and other considerations. Currently, no consensus exists regarding use of hemoglobin A1c for diagnosis of diabetes for children. REPORT COMMENT: FASTING:YES Test Performed at: [place] [address] ASHLEY GIRALDO DO,MPH Whole Blood BLOOD SPECIMEN WITH EDTA / Unknown 12/14/2016 1:39 PM CDT 12/14/2016 1:40 PM CDT us Helio Boudreaux MD LAB - CHEMISTRY ORDERABLES Final Result [facility] [address] [place] [address] * (ABNORMAL) MICROALB/CREAT RATIO URINE RANDOM PANEL (04/20/2016 10:23 AM INSTRUCTOR DRAMATIC ARTS) Creatinine Urine 210 20 - 370 mg/dL [facility] Comment: Test Performed at: [facility] [address] ASHLEY GIRALDO DO,MPH Microalbumin Urine 9.2 mg/dL [facility] Comment: Reference Range Not established Test Performed at: [facility] [address] [address] ASHLEY GIRALDO DO,MPH Microalbumin/Creat inine Ratio 44(H) <30 mcg/mg creat [facility] Comment: The ADA defines abnormalities in albumin excretion as follows: Category Result (mcg/mg creatinine) Normal <30 Microalbuminuria 30-299 Clinical albuminuria > OR = 300 The ADA recommends that at least two of three specimens collected within a 3-6 month period be abnormal before considering a patient to be within a diagnostic category. 04/20/2016 10:2 3 AM INSTRUCTOR DRAMATIC ARTS 04/20/2016 10:24 AM [facility] us Helio Boudreaux MD LAB - URINE CHEMISTRY ORDERABLES Final Result [facility] [address] [place] [address] * (ABNORMAL) BASIC METABOLIC PANEL (CALCIUM TOTAL) (05/31/2013 1:02 AM INSTRUCTOR DRAMATIC ARTS) Glucose 139(H) 70 - 105 mg/dL 05/31/2013 1:26 AM [facility] Sodium 136 136 - 145 mmol/L 05/31/2013 1:26 AM [facility] Potassium 4.5 3.5 - 5.1 mmol/L 05/31/2013 1:26 AM [facility] Chloride 110(H) 98 - 107 mmol/L 05/31/2013 1:26 AM [facility] CO2 17(L) 20 - 28 mmol/L 05/31/2013 1:26 AM [facility] Calcium 9.59 9.08 - 10.48 mg/dL 05/31/2013 1:26 AM [facility] Anion Gap 9 5 - 20 mmol/L 05/31/2013 1:26 AM [facility] BUN 14.2 5.3 - 18.7 mg/dL 05/31/2013 1:26 AM [facility] Creatinine 0.72 0.61 - 1.07 mg/dL 05/31/2013 1:26 AM [facility] eGFR by MDRD mL/min/1.7 3m2 05/31/2013 1:26 AM INSTRUCTOR DRAMATIC ARTS [facility] Comment:eGFR calculations ar e not performed for children under 18 years old. eGFR by MDRD mL/min/1.7 3m2 05/31/2013 1:26 AM INSTRUCTOR DRAMATIC ARTS [facility] Comment:eGFR calculations ar e not performed for children under 18 years old. Blood BLOOD SPECIMEN / Unknown Lab Venipuncture / Unknown 05/31/2013 1:02 AM INSTRUCTOR DRAMATIC ARTS 05/31/2013 1:05 AM INSTRUCTOR DRAMATIC ARTS us Marce Chamberlain MD LAB - CHEMISTRY ORDERABLE S Final Result [facility] [address] [place] [address] from Last 3 Months or Most Recently Relevant to Health Maintenance Insurance [facility] [place] Address: [facility] [id number] [place] [address] Care Teams Travel Sales Consultant Relationship Specialty Start Date End Date Moses Curry MD [facility] [place] [address] PCP - General Family Medicine 12/21/15 Helio Boudreaux MD [address] [place] [address] Pediatric Endocrinology 07/16/13 Norman Flores APRN-RICE FARMER [address] [place] [address] Nurse Practitioner Nurse Practitioner 07/16/13 Tatum Lew APRN-RICE FARMER [address] [place] [address] Nurse Practitioner Nurse Practitioner 07/16/13 Norman Flores APRN-RICE FARMER [address] [place] [address] Nurse Practitioner Nurse Practitioner 07/16/13
--- OUTSIDE RECORDS SUMMARY | 2024-09-30 15:07 | XMS_ITS | Encounter Summary ---
Author Organization [facility] Address [address] [facility] [place] [address] Care Team Providers Care Pricing Strategist Name Role Phone Helio Boudreaux MD Unavailable Norman Flores MERCHANDISE PRESENTATION MANAGER-BELL MAKER Unavailable Tatum Lew MERCHANDISE PRESENTATION MANAGER-BELL MAKER Unavailable Unavail able Norman Flores MERCHANDISE PRESENTATION MANAGER-BELL MAKER Unavailable Casey Guido MD Primary Care Provider [phone] Moses Curry MD Primary Care Provider [phone] Reason for Visit * Reason Onset Date Comments General 12/30/2014 Encounter Details Date Type Department Care Team (Late st Contact Info) Description 12/30/2014 Telephone [facility] Pediatrics - Diabetes [facility] [address] [place] [address] Norman Flores APRN-EUSEBIO [address] [place] [id number] General Social History Tobacco Use Types Packs/Day Years Used Date Smoking Tobacco: Never Alcohol Use Standard Drinks/Week Comments No 0 (1 standard drink = 0.6 oz pur e alcohol) Sex and Gender Information Value Date Recorded Sex Assigned at Not on file Legal Sex Male 6:35 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 Contact number for [employer]: [phone] ext [phone] If we have questions. Mom said [employer] will fax prescriptions to us, we will watch for them. documented in this encounter Plan of Treatment Not on file documented as of this encounter Visit Diagnoses Not on filedocumented in this encounter Care Teams Pricing Strategist Relationship Specialty Start Date End Date Casey Guido MD [address] [place] [address] PCP - General Family Medicine 06/16/14 12/20/15 Moses Curry MD [facility] [place] [address] PCP - General Family Medicine 12/21/15 Helio Boudreaux MD [address] [place] [phone] Pediatric Endocrinology 07/16/13 Norman Flores APRN-CNP [address] [place] [address] Nurse Practitioner Nurse Practitioner 07/16/13 Tatum Lew APRN-CNP [address] [place] [address] Nurse Practitioner Nurse Practitioner 07/16/13 Norman Flores APRN-CNP [address] [place] [address] Nurse Practitioner Nurse Practitioner 07/16/13 documented as of this encounter
--- OUTSIDE RECORDS SUMMARY | 2024-09-30 15:07 | XMS_ITS | Encounter Summary ---
Author Organization [facility] Address [address] [facility] [place] [address] Care Team Providers Care Baseball Glove Stuffer Name Role Phone Moses Curry MD Primary Care Provider [phone] Helio Boudreaux MD Unavailable Norman Flores CASING INSPECTOR-EQUITY RESEARCH ANALYST Unavailable [phone] Tatum Lew CASING INSPECTOR-EQUITY RESEARCH ANALYST Unavailable Unavail able Norman Flores CASING INSPECTOR-EQUITY RESEARCH ANALYST Unavailable [phone] Casey Guido MD Primary Care Provider [phone] Moses Curry MD Primary Care Provider [phone] Reason for Visit * Reason Onset Date Comments LOW BLOOD SUGAR 03/06/2012 Encounter Details Date Type Department Care Team (Late st Contact Info) Description 03/06/2012 Telephone [facility] Pediatrics - Diabetes [address] [address] Helio Boudreaux MD [address] [place] [address] LOW BLOOD SUGAR Social History Tobacco Use Types Packs/Day Years Used Date Smoking Tobacco: Never Alcohol Use Standard Drinks/Week Comments No 0 (1 standard drink = 0.6 oz pur e alcohol) Sex and Gender Information Value Date Recorded Sex Assigned at Not on file Legal Sex Male 6:35 AM DOORPERSON Gender Identity Not on file Sexual Orientation Not on file documented as of this encounter Miscellaneous Notes * Telephone Encounter - Gustavo Bean, RN - 03/06/2012 2:14 PM CDT I returned mom's call [phone]. Wilian's blood sugar has been running low every afternoon. He has football practice after school and will soon be switching to basketball. Last year, he gave 1:7 at lunch instead of 1:5 and that worked well per mom's report. They would like to change lunch to 1:7, request a note be faxed to the nurse: [phone]. Will do. I requested mom call us with 4-5 days of bgs, agreed. documented in this encounter Plan of Treatment Not on file documented as of this encounter Visit Diagnoses Not on filedocumented in this encounter Care Teams Baseball Glove Stuffer Relationship Specialty Start Date End Date Moses Curry MD [address] [place] [address] PCP - General 11/19/09 06/15/14 Casey Guido MD [address] [facility] [address] [place] [address] PCP - General Family Medicine 06/16/14 12/20/15 Moses Curry MD [address] [place] [address] PCP - General Family Medicine 12/21/15 Helio Boudreaux MD [address] [place] [phone] Pediatric Endocrinology 07/16/13 Norman Flores APRN-EQUITY RESEARCH ANALYST [address] [place] [address] Nurse Practitioner Nurse Practitioner 07/16/13 Tatum Lew APRN-EQUITY RESEARCH ANALYST [address] [place] [address] Nurse Practitioner Nurse Practitioner 07/16/13 oNrman Flores APRN-EUSEBIO [address] [place] [address] Nurse Practitioner Nurse Practitioner 07/16/13 documented as of this encounter
--- OUTSIDE RECORDS SUMMARY | 2024-09-30 15:07 | XMS_ITS | Encounter Summary ---
Author Organization [facility] Address [address] [facility] [place] [address] Care Team Providers Care Manager Army Name Role Phone Moses Curry MD Primary Care Provider [phone] Helio Boudreaux MD Unavailable Norman Flores FORMSTONE FITTER-BLEND TECHNICIAN Unavailable [phone] Tatum Lew FORMSTONE FITTER-BLEND TECHNICIAN Unavailable Unavail able Norman Flores FORMSTONE FITTER-BLEND TECHNICIAN Unavailable [phone] Casey Guido MD Primary Care Provider [phone] Moses Curry MD Primary Care Provider [phone] Reason for Visit * Reason Onset Date Comments MEDICATION REFILL 08/21/2012 Encounter Details Date Type Department Care Team (Late st Contact Info) Description 08/21/2012 Refill [facility] - Diabetes [address] [address] Tatum Lew, FORMSTONE FITTER-BLEND TECHNICIAN Retired MEDICATION REFILL Social History Tobacco Use Types Packs/Day Years Used Date Smoking Tobacco: Never Alcohol Use Standard Drinks/Week Comments No 0 (1 standard drink = 0.6 oz pur e alcohol) Sex and Gender Information Value Date Recorded Sex Assigned at Not on file Legal Sex Male 6:35 AM TOOLROOM KEEPER Gender Identity Not on file Sexual Orientation Not on file documented as of this encounter Plan of Treatment Not on file documented as of this encounter Visit Diagnoses Not on filedocumented in this encounter Care Teams Manager Army Relationship Specialty Start Date End Date Moses Curry MD [address] [facility] [place] [address] PCP - General 11/19/09 06/15/14 Casey Guido MD [address] [place] [phone] PCP - General Family Medicine 06/16/14 12/20/15 Moses Curry MD [address] [facility] [place] [address] PCP - General Family Medicine 12/21/15 [place] [address] [place] [address] Pediatric Endocrinology 07/16/13 Norman Flores APRN-BLEND TECHNICIAN [address] [place] [address] Nurse Practitioner Nurse Practitioner 07/16/13 Tatum Lew APRN-BLEND TECHNICIAN [address] [place] [address] Nurse Practitioner Nurse Practitioner 07/16/13 Norman Flores APRN-BLEND TECHNICIAN [address] [place] [address] Nurse Practitioner Nurse Practitioner 07/16/13 documented as of this encounter
--- OUTSIDE RECORDS SUMMARY | 2024-09-30 15:07 | XMS_ITS | Encounter Summary ---
Author Organization [facility] Address [address] [facility] [place] [address] Care Team Providers Care Soccer Referee Name Role Phone Helio Boudreaux MD Unavailable Norman Flores DIRECTOR OF DIGITAL PLATFORMS-HEAT TREAT PULLER Unavailable [phone] Tatum Lew DIRECTOR OF DIGITAL PLATFORMS-HEAT TREAT PULLER Unavailable Unavail able Norman Flores DIRECTOR OF DIGITAL PLATFORMS-HEAT TREAT PULLER Unavailable [phone] Moses Curry MD Primary Care Provider [phone] Reason for Visit * Reason Onset Date Comments MEDICATION REFILL 06/07/2016 Encounter Details Date Type Department Care Team (Late st Contact Info) Description 06/07/2016 Refill [facility] Pediatrics - Endocrinology [address] [place] [phone] Helio Boudreaux MD [address] [place] [phone] MEDICATION REFILL Social History Tobacco Use Types Packs/Day Years Used Date Smoking Tobacco: Never Alcohol Use Standard Drinks/Week Comments No 0 (1 standard drink = 0.6 oz pur e alcohol) Sex and Gender Information Value Date Recorded Sex Assigned at Not on file Legal Sex Male 6:35 AM ER PHYSICIAN Gender Identity Not on file Sexual Orientation Not on file documented as of this encounter Plan of Treatment Not on file documented as of this encounter Visit Diagnoses Not on filedocumented in this encounter Care Teams Soccer Referee Relationship Specialty Start Date End Date Moses Curry MD [address] [facility] [place] [address] PCP - General Family Medicine 12/21/15 Helio Boudreaux MD [address] [place] [address] Pediatric Endocrinology 07/16/13 Norman Flores APRN-CNP [address] [place] [address] Nurse Practitioner Nurse Practitioner 07/16/13 Tatum Lew APRN-CNP [address] [place] [address] Nurse Practitioner Nurse Practitioner 07/16/13 Norman Flores APRN-CNP [address] [place] [address] Nurse Practitioner Nurse Practitioner 07/16/13 documented as of this encounter
--- OUTSIDE RECORDS SUMMARY | 2024-09-30 15:07 | XMS_ITS | Encounter Summary ---
Author Organization [facility] Address [address] [facility] [place] [address] Care Team Providers Care Cardiology Clinical Consultant Name Role Phone Moses Curry MD Primary Care Provider [phone] Helio Boudreaux MD Unavailable Norman Flores HOME HOUSEKEEPER-SALES SUPPORT ASSOCIATE Unavailable Tatum Lew HOME HOUSEKEEPER-SALES SUPPORT ASSOCIATE Unavailable Unavail able Norman Flores HOME HOUSEKEEPER-SALES SUPPORT ASSOCIATE Unavailable [phone] Casey Guido MD Primary Care Provider Moses Curry MD Primary Care Provider [phone] Encounter Details Date Type Department Care Team (Late st Contact Info) Description 05/26/2014 Telephone [facility] Pediatrics - Endocrinology [address] [place] [address] Norman Flores APRN-EUSEBIO [address] [place] [address] Social History Tobacco Use Types Packs/Day Years Used Date Smoking Tobacco: Never Alcohol Use Standard Drinks/Week Comments No 0 (1 standard drink = 0.6 oz pur e alcohol) Sex and Gender Information Value Date Recorded Sex Assigned at Not on file Legal Sex Male 6:35 AM HYDRATION PLANT OPERATOR Gender Identity Not on file Sexual Orientation Not on file documented as of this encounter Miscellaneous Notes * Telephone Encounter - Norman Flores APRN-CNP - 05/26/2014 6:41 PM HYDRATION PLANT OPERATOR Mother called Blood sugar 178 Vomited 3-4 times Family is in [place] Do not have ketostix or glucagon. I called [facility] into [facility] in [place]. Mother will call back if he has mod-lg keteons ATION PLANT OPERATOR documented in this encounter Plan of Treatment Not on file documented as of this encounter Visit Diagnoses Not on filedocumented in this encounter Care Teams Cardiology Clinical Consultant Relationship Specialty Start Date End Date Moses Curry MD [address] [place] [address] PCP - General 11/19/09 06/15/14 Casey Guido MD [address] [place] [id number] PCP - General Family Medicine 06/16/14 12/20/15 Moses Curry MD [address] [place] [address] PCP - General Family Medicine 12/21/15 Helio Boudreaux MD [address] [place] [address] Pediatric Endocrinology 07/16/13 Norman Flores APRN-CNP [address] [place] [address] Nurse Practitioner Nurse Practitioner 07/16/13 Tatum Lew APRN-CNP [address] [place] [address] Nurse Practitioner Nurse Practitioner 07/16/13 Norman Flores APRN-CNP [address] [place] [address], [place] [address] Nurse Practitioner Nurse Practitioner 07/16/13 documented as of this encounter
--- OUTSIDE RECORDS SUMMARY | 2024-09-30 15:07 | XMS_ITS | Clinical Summary ---
Author Organization [facility] Address [facility] [place] [address] Care Team Providers Care Tooling Engineer Name Role Phone Colt Gonzalez Primary Care Provider + Allergies No known active allergies Medications ONETOUCH VERIO test strip 09/23/19 20 Active Continuous Blood Gluc Transmit (DEXCOM G6 TRANSMITTER) Misc REPLACE EVERY 90 DAYS 04/24/20 20 Active Continuous Glucose Sensor (DEXCOM G6 SENSOR) MiscIndications:Typ e 1 diabetes mellitus with diabetic microalbuminuria ([facility] HHS/HCC) REPLACE 1 SENSOR EVERY 10 DAYS 10 each 2 04/12/20 24 Active Insulin Disposable Pump (OMNIPOD 5 [id number] PODS GEN 5) MiscIndications:Typ e 1 diabetes mellitus with diabetic microalbuminuria ([facility] HHS/HCC) 1 each by Does not apply route every 3 (three) days. Sig: CHANGE OMNIPOD POD EVERY 3 DAYS 30 each 1 07/02/19 25 Active insulin lispro (HUMALOG/ADMELOG) 100 UNIT/ML injection (VIAL)Indications:T ype 1 diabetes mellitus with diabetic microalbuminuria ([facility] HHS/HCC) INJECT 80 UNITS SUBCUTANEOUSLY DAILY VIA CONTINUOUS INFUSION 70 mL 07/02/19 25 Active Active Problems Problem Noted Date Diagnosed Date Chronic diarrhea 04/13/2021 Overview (04/13/2021): Added automatically from request for surgery [id number] Body mass index (BMI) 19.9 or less, adult 2018 Microalbuminuria 05/01/2016 Overview (04/23/2019): Last Assessment & Plan: 1. Referral to Nephrology Other closed fractures of distal end of radius ( alone) 07/04/2013 Diabetes mellitus type 1 ([facility]) 11/19 Overview (04/23/2019): Overview: Dx: 08/07/07 Mar 31, 2014 - total IgA 76 mg/dL; tissue transglutaminase antibody (IgA): 1 u/mL (< 4) DKA hospitalization (05/30/13) Complications: microalbuminuria (has not followed up with nephrology) Last RD: August,. Last Assessment & Plan: Lantus 28 units at 6 p.m. Novolog/humalo [...] meal snacking without taking insulin. Per the [place] [employer] practice guidelines [Diabetes Care 2015 [...] August 2016 Follow-up by telephone (office number: [phone], option #4 or fax number: [phone]) as needed before transfer of care to local adult methods engineer Resolved Problems Problem Noted Date Diagnosed Date Resolved Date BRBPR (bright red blood per rectum) 04/13/2021 08/12/2022 Overview (04/13/2021): Added automatically from request for surgery [id number] Encounters Date Type Department Care Team Description 09/16/2024 Scan HEALTH INFO SRVCS Scanned, Doc Med Group Image (SCAN) 07/02/2024 Telephone [facility] Family & Internal Medicine [address] [address] Colt Gonzalez, Prior Authorization (Dexcom G6 Sensors) from Last 3 Months Immunizations Immunization Administration Dates Next Due Dtap (Acel-Immune) 03/25/2002, 9,1998,1998,1998 Dtap (Generic) 03/25/2002, 9,1998,1998,1998 Flucelvax 6 Months+ (Prefill ed Syringe) 04/03/2019,03/12/2018,03/22/2017 Flulaval Quad (Multi-Dose Vial) 04/21/2016,05/13,05/01/2013 Flumist (Intranasal LAIV4) 05/13/2014 Fluzone 6 Months+ Quad (0.5 mL Prefilled Syringe) 02/06/2020 Hepatitis B 1998,1998,1998 Hib (Generic) 1999, 9,1998,1997 Influenza (Generic) 03/12/2018, 7,05/13/2014,2010 Influenza Adult (Generic) 03/07/2022,,04/03/2019,2015,05/13/2015,05/01/2013 MMR 03/25/2002,1999 Menactra 05/13/2014 Polio IPV (Ipol) 03/25/2002, 9,1998,1997 Polio Ipv (Generic) 03/25/2002, 9,1998,1997 Tdap (Adacel) 08/12/2022 Tdap (Generic) 04/11/2012 Varicella Vaccine 1999 Family History Medical History Relation Comments Ulcerative Colitis Maternal Grandfather None Mother Relation Status Comments Father Alive Maternal Grandfather Mother Alive Social History Tobacco Use Types Packs/Day Years Used Date Smoking Tobacco: Never Smokeless Tobacco: Never Tobacco Cessation:Counseling Given: Not Answered Alcohol Use Standard Drinks/Week Comments Not Currently 0 (1 standard drink = 0.6 oz pur e alcohol) Occ AUDIT-C Answer Date Recorded Frequency of Alcohol Consumption Monthly or less 04/23/2019 Average Number of Drinks Not on file 019 Frequency of Binge Drinking Not on file 04/05 PHQ-2 Answer Date Recorded Patient Health Questionnaire-2 Score 0 04/10/2024 Sex and Gender Information Value Date Recorded Sex Assigned at Not on file Legal Sex Male 9:29 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 Gender Identity Not on file Sexual Orientation Straight 04/23/2019 3: 11 PM CEMENT KILN OPERATOR 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 file Not on file Not on file Last Filed Vital Signs Vital Sign Reading Time Taken Comments Blood Pressure 100/64 04/10/2024 7:57 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 Pulse 92 04/10/2024 7:57 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 Temperature 36.3 C (97.3 F) 04/10/2024 7:57 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 Respiratory Rate 16 04/10/2024 7:57 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 Oxygen Saturation 98% 04/10/2024 7:57 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 Inhaled Oxygen Concentration - - Weight 89.4 kg (197 lb 3.2 oz) 04/10/2024 7:57 A M CEMENT KILN OPERATOR Height 198.1 cm (6' 6 ) 04/10/2024 7:57 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 Body Mass Index 22.79 04/10/2024 7:57 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 Plan of Treatment Upcoming Encounters Date Type Department Care Team (Late st Contact Info) Description 10/09/2024 9:20 AM CDT Office Visit [facility] Medical [facility] Family & Internal Medicine [address] [address] Colt Gonzalez, DO [address] [place] [address] Health Maintenance Due Date Last Done Comments HPV Vaccines (1 - Male 3-dose series) 2013 Pneumococcal Vaccine: Pediatrics (0 to 5 Years) and At-Risk Patients (6 to 49 Years) (1 of 2 - PCV) 2017 Annual Physical 04/23/2020 04/23/2019 Diabetes: Retinopathy Eye Exam 01/10/2024 01/09/2023 COVID-19 Vaccine ( season) 2024 PHQ-2 (Physician [place]) 06/05/2024 04/10/2024 Hemoglobin A1C 10/08/2024 04/10/2024, 06/05, 06/07/2022, Additional history exists Kidney Health Evaluation 04/10/2025 04/10/2024 Lipid Panel 04/10/2025 04/10/2024, 03/05, 05/04/2020 DTaP, Tdap and Td Vaccines (8 - Td or Tdap) 08/12/2032 08/12/2022, 04/11/2012, 03/25/2002, Additional history exists Hepatitis B Vaccines Completed 1998, 1998, 1998 Meningococcal Vaccine Completed 05/13/2014 Hepatitis C Completed 03/20/2023 Meningococcal B Vaccine Aged Out No l onger eligible based on patient's age to complete this topic RSV Immunizations Under 20 Months Aged Out No longer eligible based on patient's age to complete this topic Procedures Procedure Name Priority Date/Time Associated Diagnosis Comments IMAGE GENERIC 09/16/2024 LIPID PANEL Routine 04/10/2024 8:23 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 Type 1 diabetes mellitus with diabetic microalbuminuria ([facility] HHS/HCC) Annual physical exam Screening for lipid disorders Screening for endocrine, metabolic and immunity disorder HEMOGLOBIN, GLYCOSYLATED Routine 04/10/2024 Type 1 diabetes mellitus with diabetic microalbuminuria ([facility] HHS/HCC) HEPATITIS C ANTIBODY Routine 03/20/2023 9:21 AM CDT Annual physical exam Need for hepatitis C screening test DIABETIC RETINOPATHY EXAM (POSITIVE)(SCAN ORDER) Routine 01/09/2023 from Last 3 Months or Most Recently Relevant to Health Maintenance Results * IMAGE GENERIC (09/16/2024) Anatomical Region Laterality Modality Other 09/16/2024 us Doc [facility] Scanned SCANNING Final Resu lt * (ABNORMAL) LIPID PANEL (04/10/2024 8:23 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) CHOLESTEROL 176 <200 MG/DL 04/10/2024 3:16 PM CEMENT KILN OPERATOR [facility] TRIGLYCERIDES 108 <150 MG/DL 04/10/2024 3:16 PM CEMENT KILN OPERATOR [facility] HDL 45 >40 MG/DL 04/10/2024 3:16 PM CEMENT KILN OPERATOR [facility] LDL-C 109(H) <100 MG/DL 04/10/2024 3:16 PM CEMENT KILN OPERATOR [facility] VLDL CALCULATION 22 5 - 28 MG/DL 04/10/2024 3:16 PM CEMENT KILN OPERATOR [facility] CHOL/HDL RATIO 3.9 0.0 - 4.0 04/10/2024 3:16 PM CEMENT KILN OPERATOR [facility] LDL/HDL 2.4(H) 0.41 - 2.13 04/10/2024 3:16 PM CEMENT KILN OPERATOR [facility] NON HDL CHOLESTEROL 131 <140 MG/DL 04/10/2024 3:16 PM CEMENT KILN OPERATOR [facility] 04/10/2024 8:23 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 Colt Gonzalez DO LABORATORY Final Re sult [facility] [address] [facility] [place] [address], * HEMOGLOBIN, GLYCOSYLATED (04/10/2024) HGB A1C 8.4 % [facility] 04/10/2024 Colt Gonzalez DO LABORATORY Final Re sult Performing Organization Address City/[facility]/ZIP Co de Phone Number [facility] [address] [place] [address], [place] * HEPATITIS C ANTIBODY (03/20/2023 9:21 AM CDT) HEPATITIS C AB NON-REACTI VE NON-REACT ATUL 03/20/2023 7:43 PM CDT [facility] Comment: ANTIBODIES TO HCV NOT DETECTED. DOES NOT EXCLUDE THE POSSIBILITY OF EXPOSURE TO HCV. 03/20/2023 9:21 AM CDT Colt Gonzalez DO LABORATORY Final Re sult Performing Organization Address City/[facility] Co de Phone Number [facility] [address] [place] [address], [phone] * DIABETIC RETINOPATHY EXAM (POSITIVE)(SCAN) (01/09/2023) us [facility] Scanned SCANNING Final Resu lt Performing Organization Address City/[facility] Co de Phone Number [facility] ONBASE from Last 3 Months or Most Recently Relevant to Health Maintenance Insurance [facility] Care Teams Tooling Engineer Relationship Specialty Start Date End Date Colt Gonzalez DO [address] [place] [id number] PCP - General FAMILY PRACTICE 04/23/19
--- OUTSIDE RECORDS SUMMARY | 2024-09-30 15:07 | XMS_ITS | Encounter Summary ---
Author Organization [facility] Address [address] [facility] [place] [address] Care Team Providers Care Vending Route Servicer Name Role Phone Helio Boudreaux MD Unavailable Norman Flores BEAD PICKER-ENVIRONMENTAL CONSERVATION PROFESSOR Unavailable [phone] Tatum Lew BEAD PICKER-ENVIRONMENTAL CONSERVATION PROFESSOR Unavailable Unavail able Norman Flores BEAD PICKER-ENVIRONMENTAL CONSERVATION PROFESSOR Unavailable Casey Guido MD Primary Care Provider [phone] Moses Curry MD Primary Care Provider [phone] Reason for Visit * Reason Onset Date Comments MEDICATION REFILL 10/29/2015 Encounter Details Date Type Department Care Team (Late st Contact Info) Description 10/29/2015 Refill [facility] Pediatrics - Diabetes [address] [address] Helio Boudreaux MD [address] [place] [id number] MEDICATION REFILL Social History Tobacco Use Types Packs/Day Years Used Date Smoking Tobacco: Never Alcohol Use Standard Drinks/Week Comments No 0 (1 standard drink = 0.6 oz pur e alcohol) Sex and Gender Information Value Date Recorded Sex Assigned at Not on file Legal Sex Male 6:35 AM 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 [address] PCP - General Family Medicine 12/21/15 Helio Boudreaux MD [address] [place] [phone] Pediatric Endocrinology 07/16/13 Norman Flores APRN-CNP [address] [place] [address] Nurse Practitioner Nurse Practitioner 07/16/13 Tatum Lew APRN-CNP [address] [place] [address] Nurse Practitioner Nurse Practitioner 07/16/13 Norman Flores APRN-CNP [address] [place] [address] Nurse Practitioner Nurse Practitioner 07/16/13 documented as of this encounter
--- OUTSIDE RECORDS SUMMARY | 2024-09-30 15:07 | XMS_ITS | Continuity of Care Document ---
Author Organization [facility] Address [address] [place] [address] Phone Care Team Providers Care Clerical Secretary Name Role Phone Hay MARY, Casey Unavailable Unavailable Allergies, Adverse Reactions, Alerts Substance Reaction Status Criticality No Known Allergies Active No Inform ation Procedures Procedure Date PREV VISIT, NEW, AGE 12-17 Advance Directives Directive Yes / No Effective Date File Name No Information Encounters Encounter Description Practice Location Reason(s) For Visit Diagnoses Date Provider Providers Copied on Encounter [facility], [address] [place], [id number], tel:[phone] [facility] No Information Hay Peña. [address], [place], [id number], . tel:[phone] Referring Provider: Casey Guido, [address] [place], [place], [id number]. tel:[phone] PREV VISIT, NEW, AGE 12-17 [facility], [address] [place], [id number], tel:[phone] [facility] Physical (chief complaint) Routine Medical ExamRoutine Medical Exam Hay Peña. [address] [place], [place], [id number], . tel:[phone] Family History Family Member Type Diagnosis Age At Onset Mother Problem (finding) Alive and well Father Problem (finding) ADD/ADHD Sister Problem (finding) Alive and well Payers Payer name Insurance type Covered alliance party ID Authoriza tion(s) No Information Social History Type Description Quantity Date Captured Comments Sex Male Smoking Status No Information Vital Signs Date / Time: Height Weight BMI Pulse Rate Blood Pressure Temperature Respiratory Rate Body Surface Area Head Circumference BMI percentile Pulse Ox Inhaled Ox 5:49 PM 77.00 in 160.00 lbs 18.9 7 kg/m eter (2) 88 /min 118/84 mm[Hg] 98.5 F 18 /min 22 Chief Complaint And Reason For Visit No Information Plan Of Treatment Date Type Action Status No Information History Of Present Illness Encounter Date Complaint History Of Prese nt Illness No Information Instructions Date Instruction Additional Infor mation No Information Assessments Type Assessment Date No Information
== END 2024-09-30 13:19 | disposition home or self-care (01) ==
PROVIDERS: PCP Student in an Organized Health Care Education/Training Program; Visit Provider Plastic Surgery
DX: S62.346A Nondisplaced fracture of base of fifth metacarpal bone, right hand, initial encounter for closed fracture (principal); X58.XXXA Exposure to other specified factors, initial encounter
CPT/HCPCS: 73130